=== PATIENT | male | born 1965 | race Caucasian/White ===

== ENCOUNTER 2017-09-02 09:58 | Inpatient (IN) | payer OTHER ==
[2017-09-02 10:48] VITALS: BMI 23.7
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
[2017-09-02] MEDS ORDERED: MAGNESIUM CITRATE 300 ML BOTTLE PO PRN (13:13)
[2017-09-02] MEDS ORDERED: IBUPROFEN 400 MG TABLET (FP) PO PRN (13:13)
[2017-09-02] MEDS ORDERED: MAG HYDROX/AL HYDROX/SIMETH 30 ML UNIT-DOSE CUP PO PRN (13:13)
[2017-09-02] MEDS ORDERED: LOPERAMIDE HCL 2 MG CAPSULE PO PRN (13:13)
[2017-09-02] MEDS ORDERED: MAGNESIUM HYDROX 2400MG/30ML ORAL SUSPENSION 30 ML CUP PO PRN (13:13)
[2017-09-02] MEDS ORDERED: P-EPHED 60MG/TRIPROLIDI 2.5MG TABLET PO PRN (13:13)
[2017-09-02] MEDS ORDERED: ACETAMINOPHEN 325 MG TABLET (FP) PO PRN (13:13)
[2017-09-02] MEDS ORDERED: hydrOXYzine PAMOATE 25 MG CAPSULE (FP) PO PRN (13:13)
[2017-09-02] MEDS ORDERED: MENTHOL/PHENOL 1 EACH UD MM PRN (13:13)
[2017-09-02] MEDS ORDERED: guaiFENesin/D-METHORPHAN HB 10 ML UNIT-DOSE CUPS PO PRN (13:13)
[2017-09-02] MEDS ORDERED: diazePAM 5 MG TABLET PO ONE (14:30)
[2017-09-02] MEDS ORDERED: cloNIDine HCL 0.1 MG TABLET PO ONE (14:30)
[2017-09-02] MEDS: IBUPROFEN 400 MG TABLET (FP) PO PRN (15:08)
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
[2017-09-02 17:19] LABS: URINE APPEARANCE CLEAR; URINE BILIRUBIN NEGATIVE (NEGATIVE); URINE BLOOD NEGATIVE (NEGATIVE); URINE COLOR STRAW; URINE GLUCOSE (UA) NEGATIVE (NEGATIVE); URINE KETONE NEGATIVE (NEGATIVE); URINE LEUK ESTERASE NEGATIVE (NEGATIVE); URINE NITRITE NEGATIVE (NEGATIVE); URINE PROTEIN NEGATIVE (NEGATIVE); URINE UROBILINOGEN NEGATIVE mg/dL (0.2-1.0)
[2017-09-02] MEDS: diazePAM 5 MG TABLET PO PRN (19:38)
[2017-09-02] MEDS: diazePAM 5 MG TABLET PO SCH (22:36)
[2017-09-02] MEDS: THIAMINE HCL 100 MG TABLET (FP) PO SCH (22:36)
[2017-09-02] MEDS: QUEtiapine FUMARATE 50 MG TABLET PO SCH (22:36)
[2017-09-02] MEDS: METOPROLOL TARTRATE 50 MG TABLET (FP) PO SCH (22:36)
[2017-09-03] MEDS: diazePAM 5 MG TABLET PO SCH ×3 (05:22→22:48)
[2017-09-03 10:18] LABS: HEMOGLOBIN 13.2 GM/dL (11.7-16.9); MCH 31.2 pg (25.7-33.7); MCHC 33.1 g/dl (32.0-35.9); MEAN CELL VOLUME 94.2 fl (80-96); MEAN PLT VOLUME 7.9 fl (7.5-11.1); PLATELET COUNT 398 K/MM3 (134-434); RBC 4.24 M/mm3 (4.00-5.60); RDW 17.7 % (11.9-15.9)
[2017-09-03] MEDS: PRENATAL VITAMINS W/ FOLIC ACID TABLET (FP) PO SCH (10:24)
[2017-09-03] MEDS: METOPROLOL TARTRATE 50 MG TABLET (FP) PO SCH ×2 (10:24→22:48)
[2017-09-03] MEDS: SERTRALINE HCL 50 MG TABLET (FP) PO SCH (10:24)
[2017-09-03 10:27] LABS: CHLORIDE 100 mmol/L (98-107); POTASSIUM 3.9 mmol/L (3.5-5.1); SODIUM 141 mmol/L (136-145)
[2017-09-03] MEDS: IBUPROFEN 400 MG TABLET (FP) PO PRN ×2 (10:27→22:52)
[2017-09-03] MEDS: diazePAM 5 MG TABLET PO PRN (10:28)
[2017-09-03 10:34] LABS: ALBUMIN 4.3 g/dl (3.4-5.0); ALK PHOS 75 U/L (45-117); ANION GAP 18 (8-16); BILIRUBIN,TOTAL 0.8 mg/dL (0.2-1.0); BLOOD UREA NITROGEN 13 mg/dL (7-18); CALCIUM 9.1 mg/dL (8.5-10.1); CO2 23 mmol/L (21-32); CREATININE 0.9 mg/dL (0.7-1.3); GLUCOSE,RANDOM 84 mg/dL (74-106); SGOT/AST 64 U/L (15-37); SGPT/ALT 21 U/L (12-78); TOT PROT 8.1 g/dl (6.4-8.2)
--- NOTE | 2017-09-03 14:59 | PN ---
S CIWA - CIWA Score Nausea/Vomitin-No Nausea/No Vomiting Muscle Tremors: 3 Anxiety: 4-Mod. Anxious/Guarded Agitation: 3 Paroxysmal Sweats: 3 Orientation: 0-Oriented Tacttile Disturbances: 2-Mild Itch/Numbness/Burn Auditory Disturbances: 2-Mild Harshness/Frighten Visual Disturbances: 0-None Headache: 0-None Present CIWA-Ar Total Score: 17 BHS Progress Note (SOAP) Subjective: Anxious, Tremors, Body Aches, Sweating. Objective: PATIENT A & O X 3, OBSERVED AMBULATING ON UNIT. NO ACUTE DISTRESS. 09/03/17 14:57 Vital Signs Temperature 97.9 F 09/03/17 13:19 Pulse Rate 78 09/03/17 13:19 Respiratory Rate 18 09/03/17 13:19 Blood Pressure 147/99 09/03/17 13:19 O2 Sat by Pulse Oximetry (%) Laboratory Tests 09/02/17 09/03/17 09/03/17 14:00 06:00 06:00 WBC 6.0 RBC 4.24 Hgb 13.2 Hct 40.0 MCV 94.2 MCH 31.2 MCHC 33.1 RDW 17.7 H Plt Count 398 MPV 7.9 Sodium 141 Potassium 3.9 Chloride 100 Carbon Dioxide 23 Anion Gap 18 H BUN 13 Creatinine 0.9 Creat Clearance w eGFR > 60 Random Glucose 84 Calcium 9.1 Total Bilirubin 0.8 AST 64 H ALT 21 Alkaline Phosphatase 75 Total Protein 8.1 Albumin 4.3 Urine Color Straw Urine Appearance Clear Urine pH 5.0 Ur Specific [place] 1.008 Urine Protein Negative Urine Glucose (UA) Negative Urine Ketones Negative Urine Blood Negative Urine Nitrite Negative Urine Bilirubin Negative Urine Urobilinogen Negative Ur Leukocyte Esterase Negative RPR Titer 09/03/17 06:00 WBC RBC Hgb Hct MCV MCH MCHC RDW Plt Count MPV Sodium Potassium Chloride Carbon Dioxide Anion Gap BUN Creatinine Creat Clearance w eGFR Random Glucose Calcium Total Bilirubin AST ALT Alkaline Phosphatase Total Protein Albumin Urine Color Urine Appearance Urine pH Ur Specific [place] Urine Protein Urine Glucose (UA) Urine Ketones Urine Blood Urine Nitrite Urine Bilirubin Urine Urobilinogen Ur Leukocyte Esterase RPR Titer Nonreactive LABS NOTED. Assessment: 09/03/17 14:57 WITHDRAWAL SYMPTOMS. Plan: CONTINUE DETOX. CONTINUE TO MONITOR BP.
--- NOTE | 2017-09-03 15:13 | EKG ---
Test Reason : Blood Pressure : / mmHG Vent. Rate : 100 BPM Atrial Rate : 100 BPM P-R Int : 142 ms QRS Dur : 080 ms QT Int : 346 ms P-R-T Axes : 057 050 060 degrees QTc Int : 446 ms NORMAL SINUS RHYTHM NORMAL ECG NO PREVIOUS ECGS AVAILABLE Confirmed by ZAIN GAINES MD ([id number]) on 09/03/2017 3:12:49 PM Referred By: Confirmed By:ZAIN GAINES MD
[2017-09-03] MEDS: QUEtiapine FUMARATE 50 MG TABLET PO SCH (22:48)
[2017-09-03] MEDS: THIAMINE HCL 100 MG TABLET (FP) PO SCH (22:48)
[2017-09-04] MEDS: PRENATAL VITAMINS W/ FOLIC ACID TABLET (FP) PO SCH (10:15)
[2017-09-04] MEDS: diazePAM 5 MG TABLET PO SCH ×2 (10:15→22:16)
[2017-09-04] MEDS: SERTRALINE HCL 50 MG TABLET (FP) PO SCH (10:15)
[2017-09-04] MEDS: METOPROLOL TARTRATE 50 MG TABLET (FP) PO SCH ×2 (10:15→22:16)
[2017-09-04] MEDS: IBUPROFEN 400 MG TABLET (FP) PO PRN ×2 (10:17→22:17)
--- NOTE | 2017-09-04 16:02 | PN ---
S CIWA - CIWA Score Nausea/Vomitin-No Nausea/No Vomiting Muscle Tremors: 3 Anxiety: 3 Agitation: 2 Paroxysmal Sweats: 3 Orientation: 0-Oriented Tacttile Disturbances: 2-Mild Itch/Numbness/Burn Auditory Disturbances: 2-Mild Harshness/Frighten Visual Disturbances: 0-None Headache: 0-None Present CIWA-Ar Total Score: 15 BHS Progress Note (SOAP) Subjective: Sweating, Tremors, Body Aches, Fatigue. Objective: PATIENT A & O X 3, OBSERVED AMBULATING ON UNIT. NO ACUTE DISTRESS. 09/04/17 16:02 Vital Signs Temperature 98.4 F 09/04/17 14:52 Pulse Rate 95 H 09/04/17 14:52 Respiratory Rate 18 09/04/17 14:52 Blood Pressure 141/90 09/04/17 14:52 O2 Sat by Pulse Oximetry (%) Laboratory Tests 09/02/17 09/03/17 09/03/17 14:00 06:00 06:00 WBC 6.0 RBC 4.24 Hgb 13.2 Hct 40.0 MCV 94.2 MCH 31.2 MCHC 33.1 RDW 17.7 H Plt Count 398 MPV 7.9 Sodium 141 Potassium 3.9 Chloride 100 Carbon Dioxide 23 Anion Gap 18 H BUN 13 Creatinine 0.9 Creat Clearance w eGFR > 60 Random Glucose 84 Calcium 9.1 Total Bilirubin 0.8 AST 64 H ALT 21 Alkaline Phosphatase 75 Total Protein 8.1 Albumin 4.3 Urine Color Straw Urine Appearance Clear Urine pH 5.0 Ur Specific [place] 1.008 Urine Protein Negative Urine Glucose (UA) Negative Urine Ketones Negative Urine Blood Negative Urine Nitrite Negative Urine Bilirubin Negative Urine Urobilinogen Negative Ur Leukocyte Esterase Negative RPR Titer 09/03/17 06:00 WBC RBC Hgb Hct MCV MCH MCHC RDW Plt Count MPV Sodium Potassium Chloride Carbon Dioxide Anion Gap BUN Creatinine Creat Clearance w eGFR Random Glucose Calcium Total Bilirubin AST ALT Alkaline Phosphatase Total Protein Albumin Urine Color Urine Appearance Urine pH Ur Specific [place] Urine Protein Urine Glucose (UA) Urine Ketones Urine Blood Urine Nitrite Urine Bilirubin Urine Urobilinogen Ur Leukocyte Esterase RPR Titer Nonreactive LABS NOTED. Assessment: 09/04/17 16:02 WITHDRAWAL SYMPTOMS. Plan: CONTINUE DETOX.
[2017-09-04] MEDS: QUEtiapine FUMARATE 50 MG TABLET PO SCH (22:16)
[2017-09-04] MEDS: THIAMINE HCL 100 MG TABLET (FP) PO SCH (22:16)
[2017-09-05] MEDS: diazePAM 5 MG TABLET PO SCH ×2 (10:15→22:21)
[2017-09-05] MEDS: PRENATAL VITAMINS W/ FOLIC ACID TABLET (FP) PO SCH (10:16)
[2017-09-05] MEDS: METOPROLOL TARTRATE 50 MG TABLET (FP) PO SCH ×2 (10:16→22:21)
[2017-09-05] MEDS: SERTRALINE HCL 50 MG TABLET (FP) PO SCH (10:16)
--- NOTE | 2017-09-05 13:31 | PN ---
BHS Progress Note (SOAP) Subjective: Tremor, sweating Objective: 09/05/17 13:29 Last Vital Signs Temp Pulse Resp BP Pulse Ox 97.1 F L 96 H 18 132/93 09/05/17 09:30 09/05/17 09:30 09/05/17 09:30 09/05/17 09:30 Laboratory Tests 09/02/17 09/03/17 09/03/17 14:00 06:00 06:00 WBC 6.0 RBC 4.24 Hgb 13.2 Hct 40.0 MCV 94.2 MCH 31.2 MCHC 33.1 RDW 17.7 H Plt Count 398 MPV 7.9 Sodium 141 Potassium 3.9 Chloride 100 Carbon Dioxide 23 Anion Gap 18 H BUN 13 Creatinine 0.9 Creat Clearance w eGFR > 60 Random Glucose 84 Calcium 9.1 Total Bilirubin 0.8 AST 64 H ALT 21 Alkaline Phosphatase 75 Total Protein 8.1 Albumin 4.3 Urine Color Straw Urine Appearance Clear Urine pH 5.0 Ur Specific [place] 1.008 Urine Protein Negative Urine Glucose (UA) Negative Urine Ketones Negative Urine Blood Negative Urine Nitrite Negative Urine Bilirubin Negative Urine Urobilinogen Negative Ur Leukocyte Esterase Negative RPR Titer 09/03/17 06:00 WBC RBC Hgb Hct MCV MCH MCHC RDW Plt Count MPV Sodium Potassium Chloride Carbon Dioxide Anion Gap BUN Creatinine Creat Clearance w eGFR Random Glucose Calcium Total Bilirubin AST ALT Alkaline Phosphatase Total Protein Albumin Urine Color Urine Appearance Urine pH Ur Specific [place] Urine Protein Urine Glucose (UA) Urine Ketones Urine Blood Urine Nitrite Urine Bilirubin Urine Urobilinogen Ur Leukocyte Esterase RPR Titer Nonreactive Labs noted Assessment: 09/05/17 13:29 Withdrawal symptoms Plan: Continue detox Encourage PO hydration (water)
[2017-09-05] MEDS: THIAMINE HCL 100 MG TABLET (FP) PO SCH (22:21)
[2017-09-05] MEDS: QUEtiapine FUMARATE 50 MG TABLET PO SCH (22:21)
[2017-09-05] MEDS: IBUPROFEN 400 MG TABLET (FP) PO PRN (22:23)
--- NOTE | 2017-09-06 08:54 | DS ---
[facility] Detox Discharge Summary Admission Date: 09/02/17 Discharge Date: 09/06/17 - History Present History: Alcohol Dependence Additional Comments: DETOX COMPLETED. ALERT O X 3. NAD. PT REPORTS HE HAS A PMD DR. TOM WHITE ON [place], [place]. PT INSTRUCTED TO FOLLOW UP WITH PMD FOR MEDICAL MANAGEMENT NEEDED. RX FOR METOPROLOL 50 MG PO BID #60 SENT TO HOME PHARMACY ON FILE...[facility]. Pertinent Past History: PLEASE SEE DX BELOW - Physical Exam Results Vital Signs: Vital Signs Temperature 97.1 F L 09/06/17 06:27 Pulse Rate 60 09/06/17 06:27 Respiratory Rate 18 09/06/17 06:27 Blood Pressure 105/76 09/06/17 06:27 O2 Sat by Pulse Oximetry (%) - Treatment Hospital Course: Detox Protocol Followed, Detoxed Safely, Responded well, Discharged Condition Good - Medication Discharge Medications: Ambulatory Orders Hydrochlorothiazide 50 mg PO BID 09/02/17 Ibuprofen 800 mg PO PRN 09/02/17 Quetiapine Fumarate [Seroquel] 100 mg PO HS 09/02/17 Sertraline HCl [Zoloft] 25 mg PO DAILY 09/02/17 Metoprolol Tartrate [Lopressor -] 50 mg PO BID #60 tablet 09/06/17 - Diagnosis (1) Alcohol dependence with uncomplicated withdrawal Status: Acute (2) Weight loss Status: Acute (3) Essential hypertension Status: Chronic (4) Insomnia Status: Acute (5) Substance induced mood disorder Status: Acute (6) Alcohol dependence with uncomplicated intoxication Status: Acute - AMA Did Patient Leave Against Medical Advice: No
[2017-09-06 09:10] VITALS: BP 120/91; PULSE 100; TEMP 96.4
[2017-09-06] MEDS ORDERED: diazePAM 5 MG TABLET PO SCH (10:00)
== END 2017-09-06 11:03 | disposition home or self-care (01) | DRG 775 ==
LOC: YASAS 09:58 → Y3N 13:26
PROVIDERS: ADMIT Internal Medicine; ATTEND Internal Medicine
PROC: HZ2ZZZZ Detoxification Services for Substance Abuse Treatment (ICD-10-PCS; principal; 2017-09-02)
DX: F10.230 Alcohol dependence with withdrawal, uncomplicated (principal); F19.24 Other psychoactive substance dependence with psychoactive substance-induced mood disorder; F41.8 Other specified anxiety disorders; G47.00 Insomnia, unspecified; F32.9 Major depressive disorder, single episode, unspecified; R63.4 Abnormal weight loss; Z68.23 Body mass index [BMI] 23.0-23.9, adult; R55 Syncope and collapse; Z87.438 Personal history of other diseases of male genital organs; Z86.19 Personal history of other infectious and parasitic diseases
CPT/HCPCS: 36415; 80053; 81003; 85027; 86593; 93005; 93010; J0735